=== PATIENT | male | born 1925 | race Caucasian/White ===

== ENCOUNTER → 2016-09-03 | Outpatient (REF) | payer MEDICARE, BC | LOC: M SMT 12:49 | PROVIDERS: ATTEND Urology | DX: N39.0 Urinary tract infection, site not specified (principal) ==

== ENCOUNTER → 2016-09-30 | Outpatient (CLI) | payer MEDICARE, BC ==
[2016-09-30 14:50] LABS: MEAN CORPUSCULAR HEMOGLOBIN 30.2 pg (27.0-33.0); MEAN CORPUSCULAR HGB CONC 31.8 g/dl (32.0-36.5); MEAN CORPUSCULAR VOLUME 94.8 fl (80.0-96.0); PLATELET COUNT, AUTOMATED 136 k/mm3 (150-450); RED CELL DISTRIBUTION WIDTH 14.1 % (11.5-14.5)
[2016-09-30 15:06] LABS: ALBUMIN 3.4 GM/DL (3.2-5.2); ALBUMIN/GLOBULIN RATIO 0.89 (1.00-1.93); BILIRUBIN,TOTAL 0.7 MG/DL (0.2-1.0); CALCIUM LEVEL 9.1 MG/DL (8.8-10.2); CREATININE FOR GFR 1.32 MG/DL (0.70-1.30); GLOMERULAR FILTRATION RATE 54.4 (>35); POTASSIUM SERUM 4.8 MEQ/L (3.5-5.1); TOTAL PROTEIN 7.2 GM/DL (6.4-8.2)
[2016-09-30 15:41] LABS: BASOPHILS 1 % (0-4); EOSINOPHILS 1 % (0-5)
--- NOTE | 2016-09-30 15:56 | REP ---
Right upper quadrant sonography: History: Right upper quadrant abdominal tenderness. Comparison study: CT study from [place] [facility] imaging dated November 16, 2012. Findings: Scanning through the right upper quadrant of the abdomen demonstrates a normal sized, thin-walled gallbladder without evidence of stone or polyp. Common bile duct is normal measuring 0.5 cm in greatest diameter. No focal liver lesion is seen. Liver size is normal. No pancreatic abnormality is observed. No right renal abnormality is seen. There is no evidence of ascites. The right kidney measures 12.1 x 4.6 x 4.6 cm. There is a 2.3 cm cyst in the lower pole right kidney. This is unchanged from the comparison CT. Impression: Small cyst lower pole right kidney, otherwise negative right upper quadrant sonography. Signed by Lobo Martinez MD 09/30/2016 03:47 P
== END ==
LOC: M RAD 14:16
PROVIDERS: ATTEND Physician Assistant
DX: R10.9 Unspecified abdominal pain (principal)

== ENCOUNTER → 2016-10-01 | Outpatient (CLI) | payer MEDICARE, BC ==
[~2016-10-01] MED LIST: GASTROGRAFIN SOLUTION 30ML (Q9963) As Ordered ONE; ISOVUE-370 76% 100ML VIAL (Q9967) As Ordered ONE
--- NOTE | 2016-10-01 15:28 | REP ---
CT ABDOMEN AND PELVIS WITH CONTRAST: 10/01/2016. Clinical history: Right upper quadrant abdominal pain. Comparison gallbladder ultrasound 09/30/2016, CT abdomen and pelvis 11/16/2012. Technique: Axial images through the abdomen with oral Gastrografin mixture of 10 mL in 290 mL of flavored water. Following infusion of 100 mL as of Isovue 370, scanning through the abdomen and pelvis performed with delayed images through the liver and kidneys. Coronal and sagittal reconstructions provided. Findings: CT abdomen: Some linear subsegmental atelectatic change at the medial and posterior basal segments of the left lower lobe. There are areas of peripheral atelectatic or consolidative change abutting the lateral chest wall deep sulcus left lower lobe at the mid axillary line. In addition there are extensive areas of subsegmental atelectatic change and linear atelectasis in the right base. Some cylindrical bronchiectatic change may be suspected. No definite effusion or mass. Heart is mildly prominent with left atrial and ventricular enlargement, but no pericardial thickening or effusion. Coronary artery calcifications present. No hiatal hernia. The liver and spleen are not enlarged. There is no hepatic or splenic mass, intracranial biliary dilatation or adjacent ascites. Gallbladder shows no calcified stone or mass. The pancreas visible was grossly intact. There appears to be a prominent duodenal diverticulum off the mesenteric side of the second portion of that organ. There are small periaortic and mesenteric nodes not felt to be definite pathologic. Slight thickening of the adrenal limbs noted suggesting some adrenal hyperplasia. There is a 2.6 cm cyst off the posterior aspect lower pole of the right kidney, 4 years ago was 2 cm. Atherosclerotic calcifications of the aorta without aneurysm. There is a peripheral cyst off the interpolar region of the left kidney laterally up to 1.7 cm. A couple of tiny cortical cysts seen in each side entirely within the cortex. There is no stone, solid mass or hydronephrosis. I do not see evidence of hydroureter or ureteral stone on either side. There has been a right hemicolectomy with the anastomotic suture line of the transverse colon and ileum unremarkable, is fairly distended from liquid stool in the transverse colon extending into the right colon. There is also a loop of small bowel in the left upper quadrant with anastomotic suture lines and focal dilatation. This may be a [id number] anastomosis but there is oral contrast on both sides of this without evidence of obstruction. The small bowel loops were otherwise normal in caliber and air seen all the way to the ileocolic junction in the right upper quadrant. There are no calcified gallstones or masses. No perinephric fluid, ascites in the upper abdomen or pericholecystic fluid. Surgical clips in the mesentery. Bone windows show lumbar and lower thoracic spine with small marginal osteophytes without destructive lesion or compression deformity, disc spaces are not narrowed. Visualized ribs were also intact. CT pelvis: The bone windows show that the hips are symmetric in appearance. There is narrowing of the hip joint space superiorly with acetabular roof spurs on both sides. No bony destructive lesion. No generalized ascites in the deep pelvis or peroneal gutters. A few scattered diverticula distal left colon and sigmoid. No sign of obstruction. The lung window review of all CT slice levels showed no evidence of perforation or free air. No ventral or inguinal hernia nor pathologic sized inguinal adenopathy. The inguinal canals are slightly distended by omental fat. Impression: 1. Status post right hemicolectomy with prior ileocolic anastomosis and anastomosis and proximal small bowel loop in the jejunum also seen from prior surgery. 2. There is no ascites, free air, abscess, mass, colitis or diverticulitis. Scattered diverticula noted. 3. Renal cyst is noted without hydronephrosis, mass, or stone. 4. Ureters, bladder and the gallbladder are all without calcified stones. 5. Liver, spleen, pancreas, adrenal glands and kidneys without a solid mass or other acute finding. 6. Bibasilar subsegmental atelectatic and fibrotic change. No effusion. 7. No compression fracture or focal bone lesion in the spine, pelvis, hips or ribs. Signed by Raul Ceballos MD 10/01/2016 06:00 P
== END ==
LOC: M RAD 12:38
PROVIDERS: ATTEND Physician Assistant
DX: R10.11 Right upper quadrant pain (principal)
CPT/HCPCS: 74178; Q9963; Q9967

== ENCOUNTER → 2016-12-06 | Outpatient (REF) | payer MEDICARE, BC | LOC: M LAB REF 16:56 | PROVIDERS: ATTEND Urology | DX: R30.0 Dysuria (principal) ==